=== PATIENT | female | born 1985 | race Caucasian/White ===

== ENCOUNTER 2020-06-07 22:27 | Emergency (ER) | payer OTHER, SELFPAY ==
[2020-06-07 22:41] VITALS: BP 135/83; PULSE 104; RESP 16; TEMP 37.2; O2SAT 100
[2020-06-07 23:27] LABS: Add Urine Microscopic? YES; Appearance Urine Clear (Clear); Bacteria Urine Trace /hpf; Bilirubin Urine Negative (Negative); Blood Urine 3+ (Negative); Glucose Urine UA Negative (Negative); Ketones Urine Negative (Negative); Leukocyte Esterase Ur 3+ LEU/UL (Negative); Nitrate Urine Negative (Negative); Protein Urine 2+ mg/dL (Negative); RBC Urine 21-50 /hpf (0-2); Squamous Epithelial Cell Urine Rare /hpf (Few); Urobilinogen Urine Negative mg/dL (<2.0); WBC Clumps Urine Present /HPF; WBC Urine >75 /hpf
[2020-06-07 23:35] LABS: Color Urine Light Red (Yellow); Specific Grav Ur 1.004 (1.001-1.035)
[2020-06-08] MEDS: SODIUM CHLORIDE 0.9% IV 1,000 ML 999 ML IV CONT (00:14)
[2020-06-08 00:19] VITALS: BP 116/65; PULSE 96; RESP 15; O2SAT 100
[2020-06-08 00:23] LABS: Basophils Percent Auto 0.3 % (0.2-1.2); Eosinophils Percent Auto 0.2 % (0-4.4); Hematocrit 33.7 % (37.0-47.0); Hemoglobin 11.3 g/dL (12.0-15.0); Immature Granulocyte Absolute 0.05 K/mm3 (0.00-0.031); Immature Granulocyte Percent A 0.4 % (0-0.5); Lymphocytes Absolute Auto 0.98 K/mm3 (0.9-3.2); Lymphocytes Percent Auto 8.1 % (18.3-44.2); Mean Corpuscular HGB Conc 33.5 g/dl (32-36); Mean Corpuscular Volume 89.4 fl (80-100); Mean Platelet Volume 10.4 fl (7.4-10.4); Monocytes Absolute Auto 0.8 K/mm3 (0.1-0.6); Monocytes Percent Auto 6.6 % (2.6-8.5); Neutrophils Absolute Auto 10.3 K/mm3 (1.3-6.7); Neutrophils Percent Auto 84.4 % (45.5-73.1); Platelet Count Result 234 k/mm3 (150-375); Red Blood Count 3.77 M/mm3 (4.2-5.4); Red Cell Distribution Width 12.9 % (11.5-14.5); White Blood Count 12.2 K/mm3 (4.5-10.0)
[2020-06-08 00:38] LABS: Alanine Aminotransferase 14 U/L (4-35); Albumin Level 4.1 g/dL (3.5-5.1); Alkaline Phosphatase 58 U/L (38-126); Anion Gap 8 mmol/L (8-16); Aspartate Amino Transferase 23 U/L (14-36); Bilirubin,Total 0.4 mg/dL (0.2-1.3); Blood Urea Nitrogen 11 mg/dL (7-17); Calcium 9.1 mg/dL (8.4-10.2); Carbon Dioxide 26 mmol/L (22-30); Chloride 105 mmol/L (98-107); Estimated CRCL calculation 72 ml/min; Estimated Glomerular Filt Rate > 60; Glucose 111 mg/dL (65-105); Potassium 3.8 mmol/L (3.4-5.0); Sodium 139 mmol/L (137-145)
--- NOTE | 2020-06-08 00:55 | ED.GENADULT ---
HPI - General Adult General Chief complaint: Urogenital-Female Stated complaint: hematuria Time Seen by Provider: 06/07/20 23:50 Source: RN notes reviewed History of Present Illness HPI narrative: Patient presents to emergency department from home for dysuria. Patient states symptoms began yesterday with pain with the end of urination as well as noting some blood in her urine states she had developed some flank pain last night that had improved and then again this evening and noted some mild left flank pain with painful urination she denies any fevers or chills abdominal pain nausea vomiting or any other symptoms states she did just recently and her menstrual cycle Related Data Allergies Allergy/AdvReac Type Severity Reaction Status Date / Time No Known Allergies Allergy Unverified 09/05/18 12:32 Review of Systems Review of Systems: Narrative: Gen.: Denies fevers or chills ENT: Denies congestion Respiratory: Denies shortness of breath or cough CV: Denies chest pain or palpitations GI: Denies abdominal pain nausea, emesis or diarrhea see HPI Musculoskeletal: Denies back pain or muscle pain Neuro: Denies numbness, tingling, weakness or focal weakness Skin: Denies rash Except as documented, all other systems reviewed and negative [facility] Past Medical History Medical History (Updated 06/08/20 @ 00:59 by Octavio Gray DO) Patient denies significant medical history Social History Social History (Updated 06/08/20 @ 00:57 by Octavio Gray DO) Smoking status: Never smoker Exam Narrative: Exam Narrative: APPEARANCE: No acute distress, nontoxic, resting in bed EYES: EOMI HEENT: Normocephalic, atraumatic, OMM RESPIRATORY: No respiratory distress Clear to auscultation bilaterally with no rhonchi wheezing or rales. CARDIOVASCULAR: Regular rate and rhythm without murmurs rubs or gallops. ABDOMINAL: Soft, nontender, nondistended, no rebound or guarding mild left flank tenderness MUSCULOSKELETAl: Moves all extremities. NEURO: Awake and alert. Following commands, speech normal, no focal deficits SKIN:: Warm, dry. No rashes lesions or abrasions PSYCHIATRIC: Normal affect/mood, Course Course Emergency Course: Discussed with patient and spouse results of work-up we discussed risk of kidney stone and possible CT scan risks and benefits of CT scan were reviewed and at this time patient feeling better will hold on CT scan and start on antibiotics with further outpatient follow up Discussed with patient results of workup and diagnosis. Discussed need for follow-up with primary care, proper use of medication, and reasons to return to the emergency department. Patient understands and agrees to current treatment plan Vital Signs Vital signs: Vital Signs Temperature 99 F 06/07/20 22:41 Pulse Rate 104 H 06/07/20 22:41 Respiratory Rate 16 06/07/20 22:41 Blood Pressure 135/83 06/07/20 22:41 Pulse Oximetry 100 06/07/20 22:41 Temperature 99 F 06/07/20 22:41 Pulse Rate 96 06/08/20 00:19 Respiratory Rate 15 06/08/20 00:19 Blood Pressure 116/65 06/08/20 00:19 Pulse Oximetry 100 06/08/20 00:19 Medical Decision Making Vital Signs Vital Signs: Vital Signs Temperature 99 F 06/07/20 22:41 Pulse Rate 104 H 06/07/20 22:41 Respiratory Rate 16 06/07/20 22:41 Blood Pressure 135/83 06/07/20 22:41 Pulse Oximetry 100 06/07/20 22:41 Temperature 99 F 06/07/20 22:41 Pulse Rate 96 06/08/20 00:19 Respiratory Rate 15 06/08/20 00:19 Blood Pressure 116/65 06/08/20 00:19 Pulse Oximetry 100 06/08/20 00:19 Lab Data Result diagrams: 06/08/20 00:10 06/08/20 00:10 Labs: Lab Results 06/07/20 06/08/20 06/08/20 Range/Units 22:49 00:10 00:10 WBC 12.2 H (4.5-10.0) K/mm3 RBC 3.77 L (4.2-5.4) M/mm3 Hgb 11.3 L (12.0-15.0) g/dL Hct 33.7 L (37.0-47.0) % MCV 89.4 (80-100) fl MCH 30.0 (26-34) pg MCHC 33.5 (32-36)
[2020-06-08 01:15] VITALS: BP 105/88; PULSE 87; RESP 20; O2SAT 98
== END 2020-06-08 01:15 | disposition home or self-care (01) ==
LOC: ANHED 06-08 01:07
PROVIDERS: Emergency Provider Emergency Medicine
DX: N39.0 Urinary tract infection, site not specified (principal)
CPT/HCPCS: 36415; 80053; 81001; 81025; 85025; 87077; 87086; 87088; 87186; 96365; 96375; 99284; J0131; J0696; J7030